=== PATIENT | female | born 1980 | race Caucasian/White ===

== ENCOUNTER 2023-07-25 09:50 | Emergency (ER) | payer BC, SELFPAY ==
[2023-07-25 10:03] VITALS: BP 129/89
--- NOTE | 2023-07-25 10:09 | ED.GENMED ---
History of Present Illness
General
Chief Complaint: Abdominal Symptoms
Time Seen by Provider: 07/25/23 10:08
Travel History
Have you had any contact with someone who has COVID-19?: No
Do you have any symptoms of coronavirus? Fever > 100 degrees, chills, cough, shortness of breath, sore throat, loss of taste or smell, muscle aches, or headache?: No
History of Present Illness
History of Present Illness:
HPI: Onset of nausea and vomiting last night. There has been no diarrhea. She developed abdominal pain throughout today more so in the lower central abdomen. Mother was concerned of something more serious so they brought her here for further
evaluation.
EXAM:
GENERAL: Well appearing but in mild distress
HEENT: Moist oral mucosa
CARDIOVASCULAR: No murmurs, normal heart rate, regular rhythm, No chest wall tenderness
PULMONARY: No respiratory distress, breath sounds are clear and equal
ABDOMEN: Soft with no peritoneal signs, mild suprapubic tenderness, no significant right lower quadrant tenderness
NEUROLOGIC: Excellent strength all extremities, no coordination deficits
PSYCHIATRIC: Appropriate mental status, normal insight and judgement
EXTREMITIES: Nontender, no edema, moves all extremities equally
SKIN: No rash, no lesions
TIME OF INITIAL ENCOUNTER: 10:30 AM
NUMBER AND COMPLEXITY OF PROBLEMS ADDRESSED AT THE ENCOUNTER
� Chronic conditions affecting care: High blood pressure, has had D&E.
� Acute Exacerbation and/or Progression of Chronic Illness: This is an acute problem
� Differential Diagnosis includes: Viral syndrome, gastroenteritis, foodborne illness, appendicitis less likely, UTI
AMOUNT AND/OR COMPLEXITY OF DATA TO BE REVIEWED AND ANALYZED
� I performed an independent evaluation of and my interpretation is:
EKG:
CT: CT imaging personally reviewed�agree with radiologist interpretation, no clear evidence for acute abnormality
X-rays:
Laboratory Studies: Minimal elevation of bilirubin at 2.0, lipase normal, hCG negative, white count normal at 10.4, hemoglobin normal. Urinalysis shows 3+ ketones without evidence of
Other:
� Review of other/old records: I reviewed old records, the patient has had mammogram in the past
� Clinical information was obtained by an independent historian: Spoke to parents at bedside
� Prescriptions/Medications Considered but not given:
� Further testing considered but not performed:
RISK OF COMPLICATIONS AND/OR MORBIDITY OR MORTALITY OF PATIENT MANAGEMENT
� Social determinants of health affecting care: Lives at home
� Discussion with other providers:
� Escalation of care including admission/observation vs risk of discharge considered: The patient was given IV fluids and Zofran. Will obtain CT imaging with oral IV contrast. I reassessed patient at 12:10 PM, the patient
overall feels improved but some abdominal pain persists. Labs so far have been unremarkable. I reassessed patient at 1:40 PM, she appears fairly comfortable. I informed patient of the incidental findings on CT and did recommend urology follow-up
given the questionable abnormality on the bladder however I do not feel a contributing factor for her presenting symptoms of nausea and vomiting today.
Phy Exam
Physical Exam
Physical Exam:
See HPI
Course
Orders/Labs/Results
Orders:
Orders
07/25/23 10:30
Iohexol [Omnipaque] 50 ml .ROUTE .STK-MED ONE
Ondansetron Injectable [Zofran] 4 mg .ROUTE .STK-MED ONE
07/25/23 10:35
0.9% Sodium Chloride 1000 ml [Nss] 1,000 ml IV BOLUS
Iohexol [Omnipaque] See Protocol PO NOW STA
Ondansetron Injectable [Zofran] 4 mg IV NOW STA
07/25/23 10:36
CT Abd/pel W Iv And Oral Contr Urgent
Comment:
Reason For Exam: N/V lower abd pain
Test Result ONCE
07/25/23 10:44
Complete Blood Count/With Diff Urgent
Comprehensive Metabolic Panel Urgent
Direct Bilirubin Urgent
Comment: ADD ON
HCG, Serum Qualitative Screen Urgent
Lipase Urgent
07/25/23 12:11
Add On- LAB Urgent
Tests Added?: direct / indirect bili
07/25/23 12:56
Urinalysis Reflex To Culture Urgent
Date Specimen was Collected: 07/25/23
Time Specimen was Collected: 12:48
Abnormal Lab Results
07/25/23 07/25/23
10:44 12:56
MCH 31.6 H pg
(27.0-31.0)
RDW 11.4 L %
(11.5-14.5)
Absolute Neuts (auto) 9.2 H 10^3/uL
(1.4-6.5)
Absolute Lymphs (auto) 0.7 L 10^3/uL
(1.2-3.4)
Neutrophils % 88.4 H %
(42.2-75.2)
Lymphocytes % 6.4 L %
(20.5-51.1)
Glucose 107 H mg/dl
(70-99)
Total Bilirubin 2.0 H mg/dl
(0.2-1.3)
Albumin 5.2 H g/dl
(3.5-5.0)
Urine Ketones 3+ A
(Negative)
07/25/23 10:44
07/25/23 10:44
Vital Signs
Initial and Last Documented VS:
Initial Vital Signs
Temp Pulse Resp BP Pulse Ox
97.9 F 90 16 129/89 98
07/25/23 10:03 07/25/23 10:03 07/25/23 10:03 07/25/23 10:03 07/25/23 10:03
Last Documented Vital Signs
Temp Pulse Resp BP Pulse Ox
97.9 F 72 18 124/90 100
07/25/23 10:03 07/25/23 10:46 07/25/23 10:46 07/25/23 10:46 07/25/23 10:46
*Critical Care Note
Total Time (30-74mins, 75-104mins- exclusive of procedures): Not Applicable
ED Attending Note
-
Portions of this chart may have been created with voice recognition software.� Occasional wrong word or��sound alike� substitutions may have occurred due to the inherent limitations of voice recognition software.
Discharge Plan
Departure
Patient Disposition: Home (Routine Discharge)
Date of Disposition: 07/25/23
Time of Disposition: 13:42
Patient with high blood pressure during this ER visit?: Yes
Discharge Problem:
Abdominal pain
Instructions: Nausea and Vomiting, Adult (DC), Abdominal Pain
Prescriptions:
New
ondansetron HCl 4 mg tablet
4 mg PO Q8H PRN (Reason: nausea and vomiting) Qty: 14 0RF
No Action
spironolactone 50 mg tablet
50 mg PO TID
Natures Bounty Hair,Skin,Nails
3 cap PO DAILY
Referrals:
Gurinder Watts MD [Family Provider] -
John Joshi MD [Active] - Follow up in 5-7 days
Activity Restrictions/Additional Instructions:
Blood work is normal. Urinalysis shows no sign of infection but it did show ketones in the urine�this suggest some degree of dehydration we did give you a bag of IV fluids.
The CAT scan shows a normal appendix. There is no other clear acute abnormality for your pain. A small hiatal hernia is noted. A 2 cm simple appearing right ovarian cyst is seen.
Incidentally, radiologist notes, 'Cannot exclude small left posterior urinary bladder lesion versus artifact from ureteral jet. Suggest Urinary Bladder ultrasound for more complete evaluation' -I have given you the contact information for a local
urologist.
Interventions
Interventions:
*Risk Screen - Suicide Last Done: 07/25/23 10:06
*General Assessment Last Done: 07/25/23 10:06
*Neglect/Abuse Screening Last Done: 07/25/23 10:06
VW-Ntjfxi-Rtdeyqyolp Assessment Last Done: 07/25/23 10:49
[2023-07-25 10:44] VITALS: BP 124/90
[2023-07-25] MEDS: OMNIPAQUE 50 ML PO (10:45)
[2023-07-25] MEDS: ZOFRAN 4 MG IV (10:45)
[2023-07-25] MEDS: NSS 1000 IV (10:45)
[2023-07-25 10:46] VITALS: BP 124/90
[2023-07-25 10:54] LABS: % Basophils 0.5 % (0-2); % Immature Granulocytes 0.2 % (0-0.5); % Lymphocytes 6.4 % (20.5-51.1); % Monocytes 4.5 % (1.7-9.3); % Neutrophils 88.4 % (42.2-75.2); Absolute Basophils 0.1 10^3/uL (0-0.2); Absolute Lymphocytes 0.7 10^3/uL (1.2-3.4); Absolute Monocytes 0.5 10^3/uL (0.1-0.6); Absolute Neutrophils 9.2 10^3/uL (1.4-6.5); Hematocrit 42.8 % (37.0-47.0); Hemoglobin 15.4 g/dL (12.0-16.0); Mean Corpuscular Hgb 31.6 pg (27.0-31.0); Mean Corpuscular Volume 87.7 fL (81.0-99.0); Mean Platelet Volume 8.7 fL (7.4-10.4); Nucleated Red Blood Cells % 0 %; Platelet Count 249 10^3/uL (130-400); Red Blood Cell Count 4.88 10^6/uL (4.20-5.40); Red Cell Dist. Width 11.4 % (11.5-14.5); White Blood Cell Count 10.4 10^3/uL (4.8-10.8)
[2023-07-25 11:00] VITALS: BP 115/72
[2023-07-25 11:04] LABS: HCG, Serum Qualitative Screen Negative
[2023-07-25 11:06] LABS: ALT (SGPT) 15 U/L (0-35); AST (SGOT) 23 U/L (14-36); Albumin 5.2 g/dl (3.5-5.0); Alkaline Phosphatase 72 U/L (38-126); Blood Urea Nitrogen 14 mg/dl (7-17); Calcium 10.2 mg/dl (8.4-10.2); Carbon Dioxide 24 mmol/L (22-30); Chloride 102 mmol/L (98-107); Glucose 107 mg/dl (70-99); Lipase 37 U/L (23-300); Potassium 3.6 mmol/L (3.5-5.1); Sodium 137 mmol/L (135-145); eGFR > 60.00
[2023-07-25 12:00] VITALS: BP 118/80
[2023-07-25 13:05] LABS: Direct Bilirubin 0.1 mg/dl (0.0-0.4)
[2023-07-25 13:26] LABS: Urine Albumin Negative (Neg - Trace); Urine Bilirubin Negative (Negative); Urine Character Clear (Clear); Urine Color Yellow; Urine Glucose Negative (Negative); Urine Ketone 3+ (Negative); Urine Leukocyte Negative (Negative); Urine Nitrite Negative (Negative); Urine Occult Blood Negative (Negative); Urine Urobilinogen Negative (Neg - 1+)
== END 2023-07-25 14:00 | disposition home or self-care (01) ==
LOC: EMR 09:50
PROVIDERS: EMERGENCY PHYSICIAN Emergency Medicine; FAMILY PHYSICIAN Family Medicine
DX: R10.30 Lower abdominal pain, unspecified (principal); R11.2 Nausea with vomiting, unspecified; I10 Essential (primary) hypertension
CPT/HCPCS: 99284; 96374; 74177; 80053; 81003; 82248; 83690; 84703; 85025; Q9967

== ENCOUNTER → 2025-03-14 13:56 | Outpatient (REF) | payer BC, SELFPAY | LOC: WDC 13:56 | PROVIDERS: ATTENDING PHYSICIAN Physician Assistant | DX: Z12.31 Encounter for screening mammogram for malignant neoplasm of breast (principal) | CPT/HCPCS: 77063; 77067 ==